=== PATIENT | male | born 1980 | race Caucasian/White ===

== ENCOUNTER 2019-03-11 20:11 | Emergency (ER) | payer OTHER ==
[~2019-03-11] VITALS: Ht 177.8 cm; Wt 83.9 kg
[~2019-03-11 20:11] MED LIST: no home medications
[2019-03-11 20:50] VITALS: BP 160/126
--- NOTE | 2019-03-11 21:09 | PHYS DOC ---
Past Medical History Past Medical History: No Pertinent History Past Surgical History: No Surgical History Alcohol Use: None Drug Use: None Adult General Chief Complaint Chief Complaint: LACERATION/AVULSION HPI HPI Patient is a 38 year old Male who presents with was using a knife to get a piece of cardboard out from between a space heater. Patient states the knife slipped and he stabbed his left wrist. Bleeding is controlled. Patient is not up-to-date on tetanus. Review of Systems Review of Systems Integument: 1cm left wrist anterior laceration. Denies rash or skin lesions [] All other systems were reviewed and found to be within normal limits, except as documented in this note. Current Medications Current Medications Current Medications Medications (Trade) Dose Ordered Sig/Julio Start Time Stop Time Status Last Admin Dose Admin Diphtheria/ Tetanus/Acell Pertussis (Boostrix) 0.5 ml ONCE ONCE 03/11/19 22:00 03/11/19 22:01 DC 03/11/19 21:24 0.5 ML Lidocaine HCl 20 ml 1X ONCE 03/11/19 21:30 03/11/19 21:31 DC 03/11/19 21:22 20 ML Allergies Allergies Allergies Coded Allergies Type Severity Reaction Last Updated Verified No Known Drug Allergies 05/21/13 No Physical Exam Physical Exam Constitutional: Well developed, well nourished, no acute distress, non-toxic appearance. [] Skin: 1cm mid anterior left wrist laceration. Warm, dry, no erythema, no rash. [] Extremities: No tenderness, no cyanosis, no clubbing, ROM intact, no edema. [] Neurologic: Alert and oriented X 3, normal motor function, normal sensory fu nction, no focal deficits noted. [] Psychologic: Affect normal, judgement normal, mood normal. [] Current Patient Data Vital Signs Vital Signs Date Time Temp Pulse Resp B/P (MAP) Pulse Ox O2 Delivery O2 Flow Rate FiO2 03/11/19 20:50 98.2 100 16 160/126 (137) 98 Room Air 98.2 EKG EKG [] Radiology/Procedures Radiology/Procedures [] Impressions: [facility] [address] [place] [address] IMAGING REPORT Signed PATIENT: LUC BARKLEY ACCOUNT: [id number] : 1980 LOCATION: ER AGE: 38 SEX: M EXAM STATUS: REG ER ORD. PHYSICIAN: LASHAWN ENGLE APRN REASON: laceration PROCEDURE: WRIST 3V LEFT WRIST 3V LEFT History: Laceration. Technique: 3 views left wrist. Comparison: None. Findings: Normal alignment. No fracture. No radiopaque foreign body. Impression: 1. No acute osseous abnormality. No radiopaque foreign body. Electronically signed by: Joe Pandya DO (03/11/2019 9:45 PM) [facility] DICTATED and SIGNED BY: JOE PANDYA DO DATE: 03/11/192144 Course & Med Decision Making Course & Med Decision Making Patient is a 38 year old Male who presents with was using a knife to get a piece of cardboard out from between a space heater. Patient states the knife slipped and he stabbed his left wrist. Bleeding is controlled. Patient is not up-to-date on tetanus. With a 1 cm laceration to the mid anterior left wrist. Bleeding is controlled. There does not look to be any veins or arteries that were cut. There is no arterial bleed. Bleeding is controlled without pressure. Radial pulses strong and present. Cap refill less than 3 seconds. Skin pink warm and dry. Patient rates his pain a 5 out of 10 at this time. No weakness or laxity at the joint. Laceration Repair by me: Anesthesia: 1% lidocaine locally Location: Mid left anterior wrist Tendon/Joint/Nerves: No injury Foreign body: None detected after copious irrigation with saline and chlorhexidine and exploration Technique: 2 Simple Interrupted Sutures Complexity: No subcutaneous sutures/mucosal repair/edge excision Post Closure Length: 1 cm Patient's bleeding was easily controlled in the department and there is no indication of anemia. No evidence of compartment syndrome, neurologic injury, vascular injury, open joint, tendon laceration, or foreign body. Patient is appropriate for outpatient follow up. 48 hour wound check. Scar minimization instructions given. Dragon Disclaimer Dragon Disclaimer This electronic medical record was generated, in whole or in part, using a voice recognition dictation system. Departure Departure Impression: Primary Impression: Laceration Disposition: HOME, SELF-CARE Condition: STABLE Referrals: NO PCP (PCP) Patient Instructions: Laceration Care, Adult Additional Instructions: Return in 10 days to have stitches removed. Watch for signs of infection. Keep area clean and covered. LASHAWN ENGLE APRN Mar 11, 2019 21:09
[2019-03-11] MEDS ORDERED: LIDOCAINE 2% 20 ML VIAL. IJ ONE (21:30)
--- NOTE | 2019-03-11 21:48 | RAD ---
WRIST 3V LEFT History: Laceration. Technique: 3 views left wrist. Comparison: None. Findings: Normal alignment. No fracture. No radiopaque foreign body. Impression: 1. No acute osseous abnormality. No radiopaque foreign body. Electronically signed by: Joe Montelongo DO (03/11/2019 9:45 PM) [facility]
[2019-03-11] MEDS ORDERED: DIPHTH,PERTUSS(ACELL),TET TOX 0.5 ML DISP.SYRIN. VAX IM ONE (22:00)
== END 2019-03-11 22:15 | disposition home or self-care (01) ==
LOC: ER 20:11
DX: S61.512A Laceration without foreign body of left wrist, initial encounter (principal); W26.0XXA Contact with knife, initial encounter; Y93.89 Activity, other specified; Y92.89 Other specified places as the place of occurrence of the external cause; Y99.8 Other external cause status
CPT/HCPCS: 12001; 73110; 90471; 90715; 99284; J2001; 99283